=== PATIENT | male | born 1990 | race Caucasian/White ===

== ENCOUNTER 2017-04-10 09:34 | Inpatient (IN) | payer BC, OTHER ==
[~2017-04-10] VITALS: Ht 185.4 cm; Wt 95.3 kg
--- NOTE | 2017-04-10 23:00 | NUR ---
INTAKE ASSESSMENT PT IS A/O X4.V/S STABLE.NO C/O PAIN OR S/S OF DISTRESS NOTED.PT IS IN STABLE CONDITION TO PROCEED TO DETOX UNIT.
[2017-04-10] MEDS ORDERED: QUET100T PO (23:05)
--- NOTE | 2017-04-10 23:30 | NUR ---
ADMISSION NOTE HT-6' 1" WT-210 POUNDS B/P=138/88,T=98.0,P=63,R=16,O2 SAT=96%. NKDA/NKFA. FULL CODE; REGULAR DIET. ADMITTING 26 Y/O MALE TO [facility] FOR COCAINE DEPENDENCY.PT IS A/O X 4.AMBULATES WITH A STEADY GAIT.BREATHING IS EVEN AND NON LABORED;NO C/O SOB NOTED.B/S PRESENT X 4.NO C/O N/V/D NOTED.LAST BM WAS YESTERDAY.SKIN IS INTACT,WARM AND DRY TO TOUCH.PT NOTED WITH MULTIPLE SMALL,RAISED,ENCLOSED BUMPS SCATTERED ALL OVER HIS BACK,SHOULDERS,UPPER CHEST AND FOREHEAD.PT STATED THAT HE HAS ACNE.NO C/O ITCHING,REDNESS OR S/S OF INFECTION NOTED.PT IS A CURRENT SMOKER.SMOKING CESSATION ENCOURAGED.PT IS UNWILLING TO COMPLY AY THIS TIME.PT REFUSED PNA VACCINE.PT DENIES ANY MEDICAL / PSYCH PROBLEMS.NO C/O AH/VH/SI/HI.NO HX OF SEIZURES NOTED.HIS PCP IS DR SALAS.EDUCATION PROVIDED ON SMOKING CESSATION,SUBSTANCE ABUSE,FALL PREVENTION,HEP C AND SEIZURES.NO C/O PAIN OR S/S OF DISTRESS NOTED.PT ORIENTED TO ROOM AND UNIT.CARE PLAN AND SAFETY CHECKS INITIATED. NOTIFIED.ALL SAFETY MEASURES IN PLACE PER HOSPITAL POLICY.BED IS LOCKED IN THE LOWEST POSITION.SIDE RAILS UP X 2.CALL LIGHT WITHIN REACH.PT WILL BE MONITORED FOR SAFETY. HX OF DRUG USE :- COCAINE- PT HAS BEEN SNORTING 1 GRAM OF COCAINE ON A DAILY BASIS FOR I MONTH. LAST USED ON 04-09-17 AMOUNT USED - 0.25 GRAM. DETOX HX:-- [facility] IN [place], [place]. FOR 57 DAYS,FROM DECEMBER TO MARCH 2017. PT'S LONGEST PERIOD OF SOBRIETY WAS 30 DAYS,FROM DECEMBER TO MARCH 2017.
[2017-04-10 23:37] LABS: *AMPHETAMINE, URINE NEGATIVE (NEGATIVE); *BARBITURATE, URINE NEGATIVE (NEGATIVE); *CANNABINOID, URINE POSITIVE (NEGATIVE); *COCCAINE, URINE POSITIVE (NEGATIVE); *OPIATE, URINE POSITIVE (NEGATIVE); *PHENCYCLIDINE SCREEN,URINE NEGATIVE (NEGATIVE)
[2017-04-10] MEDS ORDERED: ONDANSETRON ODT 4 MG TAB.RAPDIS SL PRN (23:45)
[2017-04-10] MEDS ORDERED: MAGNESIUM HYDROXIDE 30 ML LIQUID UDC PO PRN (23:45)
[2017-04-10] MEDS ORDERED: HYDROXYZINE PAMOATE 25 MG CAPSULE PO PRN (23:45)
[2017-04-10] MEDS ORDERED: MAG HYDROX/AL HYDROX/SIMETH 30 ML LIQUID UDC PO PRN (23:45)
[2017-04-10] MEDS ORDERED: DICYCLOMINE HCL 20 MG TABLET PO PRN (23:45)
[2017-04-10] MEDS ORDERED: CLONIDINE HCL 0.1 MG TABLET PO PRN (23:45)
[2017-04-10] MEDS ORDERED: METHOCARBAMOL 750 MG TABLET PO PRN (23:45)
[2017-04-10] MEDS ORDERED: ACETAMINOPHEN 325 MG TABLET PO PRN (23:45)
[2017-04-10] MEDS ORDERED: LOPERAMIDE HCL 2 MG CAPSULE PO PRN ×2 (23:45)
[2017-04-10] MEDS ORDERED: diphenhydrAMINE 50 MG CAPSULE PO PRN (23:45)
[2017-04-10] MEDS ORDERED: IBUPROFEN 400 MG TABLET PO PRN (23:45)
[2017-04-10] MEDS ORDERED: MIRALAX 17 GM POWD.PACK PO PRN (23:45)
[2017-04-11] VITALS: BP 130/80
[2017-04-11] MEDS ORDERED: diphenhydrAMINE 50 MG CAPSULE ONE (00:10)
--- NOTE | 2017-04-11 00:10 | NUR ---
PRN BENADRYL GIVEN ORDERED FOR C/O INSOMNIA.WILL MONITOR.
--- NOTE | 2017-04-11 01:10 | NUR ---
PRN F/U PT RESTING IN BED WITH EYES CLOSED,BREATHING IS EVEN AND NON LABORED.NO S/S OF DISTRESS NOTED.WILL BE MONITORED.
[2017-04-11 04:00] VITALS: BP 121/67
--- NOTE | 2017-04-11 06:44 | NUR ---
END OF SHIFT PT IS IN STABLE CONDITION.V/S HAVE BEEN STABLE.PRN BENADRYL WAS GIVEN WITH GOOD EFFECT,PT SLEPT 6 HRS.FLUID INTAKE WAS 500 MLS,VOICED X 2.URINE DRUG SCREEN RESULTED POSITIVE FOR OPIATES,COCAINE AND CANNABINOIDS.PT IS ON PRN MEDS ONLY.ALL SAFETY MEASURES IN PLACE.BED IS LOCKED IN THE LOWEST POSITION,SIDE RAILS UP X 2,CALL LIGHT WITHIN REACH.WILL BE MONITORED FOR SAFETY.
[2017-04-11 08:00] VITALS: BP 106/62
[2017-04-11] MEDS ORDERED: TUBERCULIN,PURIF.PROT.DERIV. 5 TU/0.1 ML TEST ID ONE (09:00)
[2017-04-11] MEDS ORDERED: MULTIVITAMINS,THERAPEUTIC TABLET PO SCH (09:00)
--- NOTE | 2017-04-11 10:00 | NUR ---
START OF SHIFT Received report from shiftman nurse. Received patient laying in bed with eyes closed. Admissions Clinician was informed by lab support service tech that pt. refused lab draw, discussed importance of lab draw, pt. states "in few hours." Patient is 26 year old male admitted for medically supervised withdrawal from cocaine. Patient is full code with NKA. On fall precaution. On assessment this AM: patient denies any SOB, chest pain, anxiety, tremors, sweating, body aches or headache, hallucination. Vitals WNL. Refused multivitamin. Tuberculin skin test performed on LFA, patient tolerated procedure, to be read 04/13/17. Patient reports feeling tired and needing more sleep. Patient was encouraged to attend group meetings today. Will continue to monitor patient.
[2017-04-11 11:32] LABS: BASOPHILS % (AUTO) 0.4 % (0.0-2.0); EOSINOPHILS # (AUTO) 0.2 K/uL (0.0-0.7); HEMATOCRIT 46.5 % (40-50); LYMPHOCYTES # (AUTO) 2.2 K/UL (0.8-4.8); LYMPHOCYTES % (AUTO) 27.8 % (20.5-51.5); MEAN CORPUSCULAR HEMOGLOBIN 30.4 UUG (27.0-31.0); MEAN CORPUSCULAR HGB CONC 34 g/dL (32.0-37.0); MEAN CORPUSCULAR VOLUME 88.4 FL (82.0-92.0); MONOCYTES # (AUTO) 0.6 K/UL (0.1-1.30); MONOCYTES % (AUTO) 6.9 % (0.0-11.0); NEUTROPHILS % (AUTO) 61.9 % (38.5-71.5); PLATELET COUNT (AUTO) 171 K/UL (150-450); RED BLOOD CELL COUNT(AUTO) 5.26 MIL/UL (4.7-6.1); RED CELL DISTRIBUTION WIDTH 12.4 % (11.5-14.5)
[2017-04-11 11:50] LABS: ALANINE AMINOTRANSFERASE 22 U/L (16-63); ALBUMIN 4.1 g/dL (3.4-5.0); ALKALINE PHOSPHATASE 51 U/L (50-136); ASPARTATE AMINOTRANSFERASE 18 U/L (15-37); BILIRUBIN,TOTAL 1.2 mg/dL (0.2-1.0); CALCIUM 9.2 mg/dL (8.5-10.1); CARBON DIOXIDE 30 mmol/L (21-32); CHLORIDE 106 mmol/L (98-107); GFR 62 mL/min (>60); GLUCOSE 94 mg/dL (74-106); POTASSIUM 4.2 mmol/L (3.5-5.1); SODIUM SERUM 140 mmol/L (136-145); TOTAL PROTEIN, SERUM 7.9 g/dL (6.4-8.2); UREA NITROGEN, BLOOD 12 mg/dL (7-18)
[2017-04-11 11:52] LABS: CREATININE 1.4 mg/dL (0.6-1.3)
[2017-04-11 11:53] LABS: ETHANOL < 3 MG/DL (0-0)
[2017-04-11 12:00] VITALS: BP 118/76
[2017-04-11 12:44] LABS: HIV-1 p24 ANTIGEN NON REACTIVE (NONREACTIVE); HIV-1/2 ANTIBODY NON REACTIVE (NONREACTIVE)
--- NOTE | 2017-04-11 15:30 | NUR ---
DISCHARGE NOTE: Patient is stable condition. vitals signs WNL, patient is alert and oriented X4. Denies suicidal or homocidical ideation. All discharge paperwork completed, dated and signed. Patient was educated about the discharge instructions. Patient was discharged from [facility] on 04/11/17 at 3:30pm. Patient left the facility will all his belongings and home medication. Patient did not report any concerns at the time of his discharge.
[2017-04-12 08:06] LABS: HEPATITIS B CORE AB, IgM Negative (Negative); HEPATITIS B SURFACE AG Negative (Negative)
== END 2017-04-11 15:30 | disposition other institution (70) | DRG 897 ==
LOC: SRC 22:22
PROVIDERS: ADMIT Internal Medicine; ATTEND Internal Medicine
PROC: HZ2ZZZZ Detoxification Services for Substance Abuse Treatment (ICD-10-PCS; principal; 2017-04-10)
DX: F14.23 Cocaine dependence with withdrawal (principal); F17.210 Nicotine dependence, cigarettes, uncomplicated; G47.00 Insomnia, unspecified; N14.1 Nephropathy induced by other drugs, medicaments and biological substances; F12.90 Cannabis use, unspecified, uncomplicated; Z81.4 Family history of other substance abuse and dependence
CPT/HCPCS: 36415; 71010; 80307; 80349; 80353; 80361; 83735; 84443; 85025; 86580; 86705; 87340; 87806; A4663; G6040-TC; Q0163